=== PATIENT | male | born 1970 | race African-American/Black ===

== ENCOUNTER 2021-05-25 16:14 | Inpatient (IN) | payer OTHER ==
[2021-05-25] MEDS ORDERED: ONDANSETRON *ODT* 4 MG TABLET SL PRN (21:06)
[2021-05-25] MEDS ORDERED: BISMUTH SUBSALICYLATE 524 MG/30 ML PO PRN (21:06)
[2021-05-25] MEDS ORDERED: MAG HYDROX/AL HYDROX/SIMETH 30 ML UNIT-DOSE CUP PO PRN (21:06)
[2021-05-25] MEDS ORDERED: ACETAMINOPHEN 325 MG TABLET (FP) PO PRN ×2 (21:06)
[2021-05-25] MEDS ORDERED: MENTHOL/PHENOL 1 EACH UD MM PRN (21:06)
[2021-05-25] MEDS ORDERED: MAGNESIUM HYDROX 2400MG/30ML ORAL SUSPENSION 30 ML CUP PO PRN (21:06)
[2021-05-25] MEDS ORDERED: MAGNESIUM CITRATE 300 ML BOTTLE PO PRN (21:06)
[2021-05-26] MEDS ORDERED: chlordiazePOXIDE HCL 25 MG CAPSULE PO PRN (00:22)
[2021-05-26] MEDS ORDERED: chlordiazePOXIDE HCL 25 MG CAPSULE ONE (00:37)
[2021-05-26] MEDS: MELATONIN 5 MG TABLETS PO SCH ×2 (00:41→22:07)
[2021-05-26] MEDS: THIAMINE HCL 100 MG TABLET (FP) PO SCH ×2 (00:41→22:06)
[2021-05-26] MEDS: chlordiazePOXIDE HCL 25 MG CAPSULE PO SCH ×2 (05:58→10:17)
[2021-05-26] MEDS ORDERED: AMLODIPINE BESYLATE PO SCH (10:00)
[2021-05-26] MEDS: METHOCARBAMOL 500 MG TABLET PO PRN (10:17)
[2021-05-26] MEDS: PRENATAL VITAMINS W/ FOLIC ACID TABLET (FP) PO SCH (10:18)
[2021-05-26] MEDS: PATIENT'S OWN MEDICATION (NON-FORMULARY) (Levetiracetam [Levetiracetam] 1,000 MG Tablet) PO SCH ×2 (10:20→22:07)
[2021-05-26] MEDS: FAMOTIDINE 20 MG PO SCH ×2 (10:20→22:07)
[2021-05-26] MEDS: ATENOLOL PO SCH (10:21)
[2021-05-26 10:42] LABS: HEMATOCRIT 34.4 % (35.4-49); HEMOGLOBIN 11.3 GM/dL (11.7-16.9); MCH 30.8 pg (25.7-33.7); MCHC 32.8 g/dl (32.0-35.9); MEAN CELL VOLUME 93.9 fl (80-96); MEAN PLT VOLUME 9.4 fl (7.5-11.1); PLATELET COUNT 200 10^3/uL (134-434); RBC 3.67 M/mm3 (4.00-5.60); RDW 15.1 % (11.9-15.9); WHITE BLOOD COUNT 2.4 K/mm3 (4.0-10.0)
[2021-05-26 11:12] LABS: ALBUMIN 3.7 g/dl (3.4-5.0); CALCIUM 9.4 mg/dL (8.5-10.1)
[2021-05-26 11:13] LABS: BLOOD UREA NITROGEN 13.6 mg/dL (7-18)
[2021-05-26 11:16] LABS: CREATININE 0.8 mg/dL (0.55-1.3)
[2021-05-26 11:17] LABS: TOT PROT 7.4 g/dl (6.4-8.2)
[2021-05-26] MEDS ORDERED: PATIENT'S OWN MEDICATION (NON-FORMULARY) (Amlodipine Besylate [Amlodipine Besylate] 10 MG) PO SCH (15:22)
[2021-05-26] MEDS ORDERED: POTASSIUM CHLORIDE ORAL LIQUID 20 MEQ/15 ML PO ONE (15:29)
[2021-05-26] MEDS ORDERED: LORazepam 0.5 MG TABLET PO PRN (15:37)
[2021-05-26] MEDS: LORazepam 1 MG TABLET PO SCH ×2 (18:07→22:06)
[2021-05-27] MEDS: IBUPROFEN 400 MG TABLET (FP) PO PRN ×3 (03:10→22:21)
[2021-05-27] MEDS ORDERED: chlordiazePOXIDE HCL 25 MG CAPSULE PO SCH (05:00)
[2021-05-27] MEDS: METHOCARBAMOL 500 MG TABLET PO PRN (05:37)
[2021-05-27] MEDS: LORazepam 0.5 MG TABLET PO SCH ×3 (05:38→18:07)
[2021-05-27] MEDS: PRENATAL VITAMINS W/ FOLIC ACID TABLET (FP) PO SCH (10:18)
[2021-05-27] MEDS: ATENOLOL PO SCH (10:18)
[2021-05-27] MEDS: PATIENT'S OWN MEDICATION (NON-FORMULARY) (Levetiracetam [Levetiracetam] 1,000 MG Tablet) PO SCH ×2 (10:18→22:20)
[2021-05-27] MEDS: FAMOTIDINE 20 MG PO SCH ×2 (10:19→22:20)
[2021-05-27] MEDS: AMLODIPINE BESYLATE PO SCH (10:19)
[2021-05-27 12:11] LABS: BASO % 1.1 % (0-2.0); HEMATOCRIT 36.8 % (35.4-49); LYMPH % 25.9 % (8-40); MCH 30.7 pg (25.7-33.7); MCHC 32.6 g/dl (32.0-35.9); MEAN CELL VOLUME 94.3 fl (80-96); MEAN PLT VOLUME 9.9 fl (7.5-11.1); MONO % 16.2 % (3.8-10.2); NEUT % 55.8 % (42.8-82.8); PLATELET COUNT 185 10^3/uL (134-434); RDW 14.8 % (11.9-15.9); WHITE BLOOD COUNT 2.9 K/mm3 (4.0-10.0)
[2021-05-27] MEDS: LISINOPRIL 5 MG TABLET PO SCH (12:27)
[2021-05-27] MEDS: FOLIC ACID 1 MG TABLET (FP) PO SCH (22:19)
[2021-05-27] MEDS: GABAPENTIN 300 MG CAPSULE PO SCH (22:19)
[2021-05-27] MEDS: MELATONIN 5 MG TABLETS PO SCH (22:19)
[2021-05-27] MEDS: THIAMINE HCL 100 MG TABLET (FP) PO SCH (22:20)
[2021-05-28] MEDS ORDERED: chlordiazePOXIDE HCL 10 MG CAPSULE PO PRN
[2021-05-28] MEDS: LORazepam 0.5 MG TABLET PO SCH ×4 (01:00→22:06)
[2021-05-28] MEDS ORDERED: chlordiazePOXIDE HCL 10 MG CAPSULE PO SCH (05:00)
[2021-05-28] MEDS: GABAPENTIN 300 MG CAPSULE PO SCH ×3 (05:51→22:05)
[2021-05-28] MEDS: LISINOPRIL 5 MG TABLET PO SCH (10:18)
[2021-05-28] MEDS: ATENOLOL PO SCH (10:18)
[2021-05-28] MEDS: PATIENT'S OWN MEDICATION (NON-FORMULARY) (Levetiracetam [Levetiracetam] 1,000 MG Tablet) PO SCH ×2 (10:18→22:10)
[2021-05-28] MEDS: FAMOTIDINE 20 MG PO SCH ×2 (10:18→22:09)
[2021-05-28] MEDS: FOLIC ACID 1 MG TABLET (FP) PO SCH (10:19)
[2021-05-28] MEDS: PRENATAL VITAMINS W/ FOLIC ACID TABLET (FP) PO SCH (10:21)
[2021-05-28] MEDS: AMLODIPINE BESYLATE PO SCH (10:22)
[2021-05-28] MEDS: IBUPROFEN 400 MG TABLET (FP) PO PRN (10:25)
[2021-05-28] MEDS ORDERED: BENZTROPINE MESYLATE 0.5 MG TABLET (FP) PO SCH (14:00)
[2021-05-28] MEDS: BENZTROPINE MESYLATE 1 MG TABLET PO SCH ×2 (14:41→22:05)
[2021-05-28] MEDS: HALOPERIDOL 0.5 MG TABLET PO SCH ×2 (14:43→22:05)
[2021-05-28] MEDS: MELATONIN 5 MG TABLETS PO SCH (22:05)
[2021-05-28] MEDS: THIAMINE HCL 100 MG TABLET (FP) PO SCH (22:05)
[2021-05-29] MEDS ORDERED: chlordiazePOXIDE HCL 10 MG CAPSULE PO SCH (05:00)
[2021-05-29] MEDS: GABAPENTIN 300 MG CAPSULE PO SCH ×3 (06:14→22:13)
[2021-05-29] MEDS: LORazepam 0.5 MG TABLET PO SCH ×2 (06:14→17:59)
[2021-05-29] MEDS: AMLODIPINE BESYLATE PO SCH (10:46)
[2021-05-29] MEDS: ATENOLOL PO SCH (10:46)
[2021-05-29] MEDS: BENZTROPINE MESYLATE 1 MG TABLET PO SCH ×2 (10:46→22:12)
[2021-05-29] MEDS: FAMOTIDINE 20 MG PO SCH ×2 (10:46→22:16)
[2021-05-29] MEDS: HALOPERIDOL 0.5 MG TABLET PO SCH ×2 (10:47→22:17)
[2021-05-29] MEDS: PATIENT'S OWN MEDICATION (NON-FORMULARY) (Levetiracetam [Levetiracetam] 1,000 MG Tablet) PO SCH ×2 (10:47→22:17)
[2021-05-29] MEDS: LISINOPRIL 5 MG TABLET PO SCH (10:47)
[2021-05-29] MEDS: FOLIC ACID 1 MG TABLET (FP) PO SCH (10:47)
[2021-05-29] MEDS: PRENATAL VITAMINS W/ FOLIC ACID TABLET (FP) PO SCH (10:47)
[2021-05-29] MEDS: IBUPROFEN 400 MG TABLET (FP) PO PRN ×2 (18:00→22:19)
[2021-05-29] MEDS: MELATONIN 5 MG TABLETS PO SCH (22:13)
[2021-05-29] MEDS: THIAMINE HCL 100 MG TABLET (FP) PO SCH (22:13)
[2021-05-30] MEDS ORDERED: LORazepam 0.5 MG TABLET PO ONE (05:00)
[2021-05-30] MEDS ORDERED: chlordiazePOXIDE HCL 10 MG CAPSULE PO ONE (05:00)
[2021-05-30] MEDS: GABAPENTIN 300 MG CAPSULE PO SCH ×3 (05:53→21:56)
[2021-05-30] MEDS: PRENATAL VITAMINS W/ FOLIC ACID TABLET (FP) PO SCH (10:11)
[2021-05-30] MEDS: BENZTROPINE MESYLATE 1 MG TABLET PO SCH ×2 (10:11→21:56)
[2021-05-30] MEDS: LISINOPRIL 5 MG TABLET PO SCH (10:11)
[2021-05-30] MEDS: FOLIC ACID 1 MG TABLET (FP) PO SCH (10:12)
[2021-05-30] MEDS: HALOPERIDOL 0.5 MG TABLET PO SCH ×2 (10:12→21:55)
[2021-05-30] MEDS: ATENOLOL PO SCH (10:12)
[2021-05-30] MEDS: AMLODIPINE BESYLATE PO SCH (10:13)
[2021-05-30] MEDS: PATIENT'S OWN MEDICATION (NON-FORMULARY) (Levetiracetam [Levetiracetam] 1,000 MG Tablet) PO SCH ×2 (10:13→21:56)
[2021-05-30] MEDS: FAMOTIDINE 20 MG PO SCH ×2 (10:14→21:55)
[2021-05-30] MEDS: IBUPROFEN 400 MG TABLET (FP) PO PRN (17:47)
[2021-05-30 21:19] VITALS: BP 150/90; PULSE 61; TEMP 97.3
[2021-05-30] MEDS: THIAMINE HCL 100 MG TABLET (FP) PO SCH (21:55)
[2021-05-30] MEDS: MELATONIN 5 MG TABLETS PO SCH (21:56)
== END 2021-05-30 22:00 | disposition other institution (70) | DRG 775 ==
LOC: YASAS 16:14 → Y6N 23:15
PROVIDERS: ADMIT Allergy & Immunology; ATTEND Allergy & Immunology
PROC: HZ2ZZZZ Detoxification Services for Substance Abuse Treatment (ICD-10-PCS; principal; 2021-05-25)
DX: F10.230 Alcohol dependence with withdrawal, uncomplicated (principal); F10.282 Alcohol dependence with alcohol-induced sleep disorder; F10.24 Alcohol dependence with alcohol-induced mood disorder; F29 Unspecified psychosis not due to a substance or known physiological condition; G62.9 Polyneuropathy, unspecified; I10 Essential (primary) hypertension; K21.9 Gastro-esophageal reflux disease without esophagitis; D72.819 Decreased white blood cell count, unspecified; Z62.810 Personal history of physical and sexual abuse in childhood; Z91.410 Personal history of adult physical and sexual abuse; Z56.0 Unemployment, unspecified
CPT/HCPCS: 36415; 80053; 80177; 85025; 85027; 86780; 93005; 93010; C9803; Q0162; U0003; U0005

== ENCOUNTER 2021-05-30 22:10 | Inpatient (IN) | payer OTHER ==
[2021-05-30] MEDS ORDERED: MENTHOL/PHENOL 1 EACH UD MM PRN (22:35)
[2021-05-30] MEDS ORDERED: MAGNESIUM HYDROX 2400MG/30ML ORAL SUSPENSION 30 ML CUP PO PRN (22:35)
[2021-05-30] MEDS ORDERED: guaiFENesin 200 MG/10 ML 10 ML UNIT-DOSE CUPS PO PRN (22:35)
[2021-05-30] MEDS ORDERED: MAGNESIUM CITRATE 300 ML BOTTLE PO PRN (22:35)
[2021-05-30] MEDS ORDERED: P-EPHED 60MG/TRIPROLIDI 2.5MG TABLET PO PRN (22:35)
[2021-05-30] MEDS ORDERED: NICOTINE 10 MG CARTRIDGE (INHALER) IH PRN (22:35)
[2021-05-30] MEDS ORDERED: LOPERAMIDE HCL 2 MG CAPSULE PO PRN (22:35)
[2021-05-30] MEDS ORDERED: MAG HYDROX/AL HYDROX/SIMETH 30 ML UNIT-DOSE CUP PO PRN (22:35)
[2021-05-30] MEDS ORDERED: ACETAMINOPHEN 325 MG TABLET (FP) PO PRN (22:35)
[2021-05-30] MEDS: MELATONIN 5 MG TABLETS PO SCH (22:58)
[2021-05-31] MEDS: IBUPROFEN 400 MG TABLET (FP) PO PRN (06:32)
[2021-05-31] MEDS: FAMOTIDINE 20 MG TABLET PO SCH ×2 (09:47→21:13)
[2021-05-31] MEDS: levETIRAcetam 500 MG TABLET (FP) PO SCH ×2 (09:47→21:10)
[2021-05-31] MEDS: ATENOLOL 25 MG TABLET (FP) PO SCH (09:48)
[2021-05-31] MEDS: amLODIPine BESYLATE 5 MG TABLET (FP) PO SCH (09:48)
[2021-05-31] MEDS: NICOTINE 14 MG/24 HOURS TOPICAL PATCH TD SCH (09:49)
[2021-05-31] MEDS: FOLIC ACID 1 MG TABLET (FP) PO SCH (09:49)
[2021-05-31] MEDS: PRENATAL VITAMINS W/ FOLIC ACID TABLET (FP) PO SCH (09:50)
[2021-05-31] MEDS ORDERED: BENZTROPINE MESYLATE 0.5 MG TABLET (FP) PO SCH (10:00)
[2021-05-31] MEDS ORDERED: THIAMINE HCL 100 MG TABLET (FP) PO SCH (10:00)
[2021-05-31] MEDS ORDERED: BENZTROPINE MESYLATE 1 MG TABLET PO SCH (10:26)
[2021-05-31] MEDS: HALOPERIDOL 0.5 MG TABLET PO SCH ×2 (10:41→21:10)
[2021-05-31] MEDS: BENZTROPINE MESYLATE 1 MG TABLET PO SCH ×2 (10:41→21:11)
[2021-05-31] MEDS: GABAPENTIN 300 MG CAPSULE PO SCH ×2 (13:48→21:10)
[2021-05-31] MEDS: MELATONIN 5 MG TABLETS PO SCH (21:12)
[2021-05-31] MEDS: THIAMINE HCL 100 MG TABLET (FP) PO SCH (21:13)
[2021-06-01] MEDS: GABAPENTIN 300 MG CAPSULE PO SCH (06:28)
[2021-06-01] MEDS: IBUPROFEN 400 MG TABLET (FP) PO PRN (06:28)
[2021-06-01] MEDS: BENZTROPINE MESYLATE 1 MG TABLET PO SCH ×2 (09:08→21:23)
[2021-06-01] MEDS: amLODIPine BESYLATE 5 MG TABLET (FP) PO SCH (09:08)
[2021-06-01] MEDS: FAMOTIDINE 20 MG TABLET PO SCH ×2 (09:08→21:23)
[2021-06-01] MEDS: PRENATAL VITAMINS W/ FOLIC ACID TABLET (FP) PO SCH (09:09)
[2021-06-01] MEDS: FOLIC ACID 1 MG TABLET (FP) PO SCH (09:09)
[2021-06-01] MEDS: HALOPERIDOL 0.5 MG TABLET PO SCH ×2 (09:09→21:26)
[2021-06-01] MEDS: levETIRAcetam 500 MG TABLET (FP) PO SCH ×2 (09:10→21:23)
[2021-06-01] MEDS: NICOTINE 14 MG/24 HOURS TOPICAL PATCH TD SCH (09:11)
[2021-06-01] MEDS: ATENOLOL 25 MG TABLET (FP) PO SCH (09:11)
[2021-06-01] MEDS: GABAPENTIN 400 MG CAPSULE PO SCH ×2 (14:38→21:23)
[2021-06-01] MEDS: THIAMINE HCL 100 MG TABLET (FP) PO SCH (21:23)
[2021-06-01] MEDS: MELATONIN 5 MG TABLETS PO SCH (21:24)
[2021-06-02] MEDS: GABAPENTIN 400 MG CAPSULE PO SCH ×3 (06:11→21:35)
[2021-06-02] MEDS: IBUPROFEN 400 MG TABLET (FP) PO PRN ×2 (06:12→21:36)
[2021-06-02] MEDS: FAMOTIDINE 20 MG TABLET PO SCH ×2 (09:52→21:35)
[2021-06-02] MEDS: levETIRAcetam 500 MG TABLET (FP) PO SCH ×2 (09:52→21:35)
[2021-06-02] MEDS: amLODIPine BESYLATE 5 MG TABLET (FP) PO SCH (09:52)
[2021-06-02] MEDS: HALOPERIDOL 0.5 MG TABLET PO SCH (09:52)
[2021-06-02] MEDS: BENZTROPINE MESYLATE 1 MG TABLET PO SCH ×2 (09:52→21:35)
[2021-06-02] MEDS: FOLIC ACID 1 MG TABLET (FP) PO SCH (09:53)
[2021-06-02] MEDS: PRENATAL VITAMINS W/ FOLIC ACID TABLET (FP) PO SCH (09:53)
[2021-06-02] MEDS: NICOTINE 14 MG/24 HOURS TOPICAL PATCH TD SCH (09:53)
[2021-06-02] MEDS: ATENOLOL 25 MG TABLET (FP) PO SCH (10:47)
[2021-06-02] MEDS: THIAMINE HCL 100 MG TABLET (FP) PO SCH (21:35)
[2021-06-02] MEDS: MELATONIN 5 MG TABLETS PO SCH (21:38)
[2021-06-02] MEDS: HALOPERIDOL 1 MG TABLET PO SCH (21:39)
[2021-06-03] MEDS: GABAPENTIN 400 MG CAPSULE PO SCH ×3 (06:25→21:31)
[2021-06-03] MEDS: IBUPROFEN 400 MG TABLET (FP) PO PRN ×2 (06:25→21:34)
[2021-06-03] MEDS: amLODIPine BESYLATE 5 MG TABLET (FP) PO SCH (09:42)
[2021-06-03] MEDS: ATENOLOL 25 MG TABLET (FP) PO SCH (09:43)
[2021-06-03] MEDS: FOLIC ACID 1 MG TABLET (FP) PO SCH (09:43)
[2021-06-03] MEDS: FAMOTIDINE 20 MG TABLET PO SCH ×2 (09:43→21:32)
[2021-06-03] MEDS: BENZTROPINE MESYLATE 1 MG TABLET PO SCH ×2 (09:43→21:32)
[2021-06-03] MEDS: levETIRAcetam 500 MG TABLET (FP) PO SCH ×2 (09:43→21:32)
[2021-06-03] MEDS: PRENATAL VITAMINS W/ FOLIC ACID TABLET (FP) PO SCH (09:45)
[2021-06-03] MEDS: HALOPERIDOL 1 MG TABLET PO SCH ×2 (09:45→21:31)
[2021-06-03] MEDS: NICOTINE 14 MG/24 HOURS TOPICAL PATCH TD SCH (09:46)
[2021-06-03] MEDS ORDERED: COLLOIDAL OATMEAL 1 BAR EACH TP PRN (14:29)
[2021-06-03] MEDS: THIAMINE HCL 100 MG TABLET (FP) PO SCH (21:32)
[2021-06-03] MEDS: MELATONIN 5 MG TABLETS PO SCH (21:34)
[2021-06-03] MEDS: NYSTATIN POWDER 100,000 UNITS/GM - 15 GM TOPICAL POWDER TP SCH (21:55)
[2021-06-04] MEDS: IBUPROFEN 400 MG TABLET (FP) PO PRN ×2 (06:10→21:15)
[2021-06-04] MEDS: GABAPENTIN 400 MG CAPSULE PO SCH ×3 (06:10→21:11)
[2021-06-04] MEDS: amLODIPine BESYLATE 5 MG TABLET (FP) PO SCH (09:38)
[2021-06-04] MEDS: levETIRAcetam 500 MG TABLET (FP) PO SCH ×2 (09:38→21:11)
[2021-06-04] MEDS: BENZTROPINE MESYLATE 1 MG TABLET PO SCH ×2 (09:38→21:12)
[2021-06-04] MEDS: PRENATAL VITAMINS W/ FOLIC ACID TABLET (FP) PO SCH (09:39)
[2021-06-04] MEDS: FAMOTIDINE 20 MG TABLET PO SCH ×2 (09:39→21:12)
[2021-06-04] MEDS: NYSTATIN POWDER 100,000 UNITS/GM - 15 GM TOPICAL POWDER TP SCH ×2 (09:41→21:14)
[2021-06-04] MEDS: FOLIC ACID 1 MG TABLET (FP) PO SCH (09:41)
[2021-06-04] MEDS: HALOPERIDOL 1 MG TABLET PO SCH ×2 (09:41→21:14)
[2021-06-04] MEDS: NICOTINE 14 MG/24 HOURS TOPICAL PATCH TD SCH (09:42)
[2021-06-04] MEDS: ATENOLOL 25 MG TABLET (FP) PO SCH (09:42)
[2021-06-04] MEDS: THIAMINE HCL 100 MG TABLET (FP) PO SCH (21:12)
[2021-06-04] MEDS: MELATONIN 5 MG TABLETS PO SCH (21:14)
[2021-06-05] MEDS: GABAPENTIN 400 MG CAPSULE PO SCH ×3 (06:24→22:05)
[2021-06-05] MEDS: IBUPROFEN 400 MG TABLET (FP) PO PRN ×2 (06:25→22:04)
[2021-06-05] MEDS: FOLIC ACID 1 MG TABLET (FP) PO SCH (09:49)
[2021-06-05] MEDS: BENZTROPINE MESYLATE 1 MG TABLET PO SCH ×2 (09:50→22:07)
[2021-06-05] MEDS: levETIRAcetam 500 MG TABLET (FP) PO SCH ×2 (09:50→22:05)
[2021-06-05] MEDS: amLODIPine BESYLATE 5 MG TABLET (FP) PO SCH (09:50)
[2021-06-05] MEDS: FAMOTIDINE 20 MG TABLET PO SCH ×2 (09:50→21:56)
[2021-06-05] MEDS: NYSTATIN POWDER 100,000 UNITS/GM - 15 GM TOPICAL POWDER TP SCH ×2 (09:51→22:07)
[2021-06-05] MEDS: PRENATAL VITAMINS W/ FOLIC ACID TABLET (FP) PO SCH (09:51)
[2021-06-05] MEDS: HALOPERIDOL 1 MG TABLET PO SCH ×2 (09:51→22:07)
[2021-06-05] MEDS: NICOTINE 14 MG/24 HOURS TOPICAL PATCH TD SCH (09:51)
[2021-06-05] MEDS: ATENOLOL 25 MG TABLET (FP) PO SCH (09:52)
[2021-06-05] MEDS: MELATONIN 5 MG TABLETS PO SCH (21:57)
[2021-06-05] MEDS: THIAMINE HCL 100 MG TABLET (FP) PO SCH (22:01)
[2021-06-06] MEDS: GABAPENTIN 400 MG CAPSULE PO SCH ×3 (06:34→21:42)
[2021-06-06] MEDS: IBUPROFEN 400 MG TABLET (FP) PO PRN (06:34)
[2021-06-06] MEDS: levETIRAcetam 500 MG TABLET (FP) PO SCH ×2 (10:03→21:42)
[2021-06-06] MEDS: amLODIPine BESYLATE 5 MG TABLET (FP) PO SCH (10:03)
[2021-06-06] MEDS: BENZTROPINE MESYLATE 1 MG TABLET PO SCH ×2 (10:03→21:42)
[2021-06-06] MEDS: FOLIC ACID 1 MG TABLET (FP) PO SCH (10:03)
[2021-06-06] MEDS: PRENATAL VITAMINS W/ FOLIC ACID TABLET (FP) PO SCH (10:03)
[2021-06-06] MEDS: ATENOLOL 25 MG TABLET (FP) PO SCH (10:03)
[2021-06-06] MEDS: NYSTATIN POWDER 100,000 UNITS/GM - 15 GM TOPICAL POWDER TP SCH ×2 (10:04→21:59)
[2021-06-06] MEDS: NICOTINE 14 MG/24 HOURS TOPICAL PATCH TD SCH (10:04)
[2021-06-06] MEDS: FAMOTIDINE 20 MG TABLET PO SCH ×2 (10:04→21:42)
[2021-06-06] MEDS: HALOPERIDOL 1 MG TABLET PO SCH ×2 (10:05→21:43)
[2021-06-06] MEDS: THIAMINE HCL 100 MG TABLET (FP) PO SCH (21:42)
[2021-06-06] MEDS: MELATONIN 5 MG TABLETS PO SCH (21:42)
[2021-06-07] MEDS: GABAPENTIN 400 MG CAPSULE PO SCH ×3 (06:16→21:56)
[2021-06-07] MEDS: IBUPROFEN 400 MG TABLET (FP) PO PRN ×2 (06:16→22:00)
[2021-06-07] MEDS: ATENOLOL 25 MG TABLET (FP) PO SCH (09:43)
[2021-06-07] MEDS: FAMOTIDINE 20 MG TABLET PO SCH ×2 (09:44→21:58)
[2021-06-07] MEDS: FOLIC ACID 1 MG TABLET (FP) PO SCH (09:44)
[2021-06-07] MEDS: levETIRAcetam 500 MG TABLET (FP) PO SCH ×2 (09:44→21:56)
[2021-06-07] MEDS: BENZTROPINE MESYLATE 1 MG TABLET PO SCH ×2 (09:44→21:56)
[2021-06-07] MEDS: PRENATAL VITAMINS W/ FOLIC ACID TABLET (FP) PO SCH (09:44)
[2021-06-07] MEDS: amLODIPine BESYLATE 5 MG TABLET (FP) PO SCH (09:44)
[2021-06-07] MEDS: NICOTINE 14 MG/24 HOURS TOPICAL PATCH TD SCH (09:46)
[2021-06-07] MEDS: NYSTATIN POWDER 100,000 UNITS/GM - 15 GM TOPICAL POWDER TP SCH ×2 (09:46→21:58)
[2021-06-07] MEDS: HALOPERIDOL 1 MG TABLET PO SCH ×2 (09:46→21:57)
[2021-06-07] MEDS: THIAMINE HCL 100 MG TABLET (FP) PO SCH (21:56)
[2021-06-07] MEDS: MELATONIN 5 MG TABLETS PO SCH (21:57)
[2021-06-08] MEDS: GABAPENTIN 400 MG CAPSULE PO SCH ×3 (06:26→22:05)
[2021-06-08] MEDS: IBUPROFEN 400 MG TABLET (FP) PO PRN (06:28)
[2021-06-08] MEDS: ATENOLOL 25 MG TABLET (FP) PO SCH (10:17)
[2021-06-08] MEDS: FOLIC ACID 1 MG TABLET (FP) PO SCH (10:17)
[2021-06-08] MEDS: levETIRAcetam 500 MG TABLET (FP) PO SCH ×2 (10:18→22:08)
[2021-06-08] MEDS: HALOPERIDOL 1 MG TABLET PO SCH ×2 (10:18→22:09)
[2021-06-08] MEDS: amLODIPine BESYLATE 5 MG TABLET (FP) PO SCH (10:18)
[2021-06-08] MEDS: BENZTROPINE MESYLATE 1 MG TABLET PO SCH ×2 (10:18→22:09)
[2021-06-08] MEDS: PRENATAL VITAMINS W/ FOLIC ACID TABLET (FP) PO SCH (10:19)
[2021-06-08] MEDS: NYSTATIN POWDER 100,000 UNITS/GM - 15 GM TOPICAL POWDER TP SCH ×2 (10:19→22:35)
[2021-06-08] MEDS: FAMOTIDINE 20 MG TABLET PO SCH ×2 (10:20→22:02)
[2021-06-08] MEDS: NICOTINE 14 MG/24 HOURS TOPICAL PATCH TD SCH (10:20)
[2021-06-08] MEDS: THIAMINE HCL 100 MG TABLET (FP) PO SCH (22:02)
[2021-06-08] MEDS: MELATONIN 5 MG TABLETS PO SCH (22:09)
[2021-06-09] MEDS: GABAPENTIN 400 MG CAPSULE PO SCH ×3 (06:13→21:31)
[2021-06-09] MEDS: IBUPROFEN 400 MG TABLET (FP) PO PRN ×2 (06:14→21:35)
[2021-06-09] MEDS: FOLIC ACID 1 MG TABLET (FP) PO SCH (09:56)
[2021-06-09] MEDS: HALOPERIDOL 1 MG TABLET PO SCH ×2 (09:56→21:31)
[2021-06-09] MEDS: BENZTROPINE MESYLATE 1 MG TABLET PO SCH ×2 (09:57→21:31)
[2021-06-09] MEDS: FAMOTIDINE 20 MG TABLET PO SCH ×2 (09:57→21:31)
[2021-06-09] MEDS: levETIRAcetam 500 MG TABLET (FP) PO SCH ×2 (09:57→21:31)
[2021-06-09] MEDS: amLODIPine BESYLATE 5 MG TABLET (FP) PO SCH (09:57)
[2021-06-09] MEDS: ATENOLOL 25 MG TABLET (FP) PO SCH (09:57)
[2021-06-09] MEDS: PRENATAL VITAMINS W/ FOLIC ACID TABLET (FP) PO SCH (09:58)
[2021-06-09] MEDS: NICOTINE 14 MG/24 HOURS TOPICAL PATCH TD SCH (09:58)
[2021-06-09] MEDS: NYSTATIN POWDER 100,000 UNITS/GM - 15 GM TOPICAL POWDER TP SCH ×2 (09:58→21:32)
[2021-06-09] MEDS: MELATONIN 5 MG TABLETS PO SCH (21:31)
[2021-06-09] MEDS: THIAMINE HCL 100 MG TABLET (FP) PO SCH (21:31)
[2021-06-10] MEDS: IBUPROFEN 400 MG TABLET (FP) PO PRN (06:19)
[2021-06-10] MEDS: GABAPENTIN 400 MG CAPSULE PO SCH ×3 (06:19→21:17)
[2021-06-10] MEDS: BENZTROPINE MESYLATE 1 MG TABLET PO SCH ×2 (10:16→21:18)
[2021-06-10] MEDS: PRENATAL VITAMINS W/ FOLIC ACID TABLET (FP) PO SCH (10:16)
[2021-06-10] MEDS: FAMOTIDINE 20 MG TABLET PO SCH ×2 (10:16→21:18)
[2021-06-10] MEDS: ATENOLOL 25 MG TABLET (FP) PO SCH (10:17)
[2021-06-10] MEDS: levETIRAcetam 500 MG TABLET (FP) PO SCH ×2 (10:17→21:17)
[2021-06-10] MEDS: FOLIC ACID 1 MG TABLET (FP) PO SCH (10:17)
[2021-06-10] MEDS: amLODIPine BESYLATE 5 MG TABLET (FP) PO SCH (10:17)
[2021-06-10] MEDS: NYSTATIN POWDER 100,000 UNITS/GM - 15 GM TOPICAL POWDER TP SCH ×2 (10:18→21:19)
[2021-06-10] MEDS: HALOPERIDOL 1 MG TABLET PO SCH ×2 (10:18→21:44)
[2021-06-10] MEDS: NICOTINE 14 MG/24 HOURS TOPICAL PATCH TD SCH (10:18)
[2021-06-10] MEDS: MELATONIN 5 MG TABLETS PO SCH (21:19)
[2021-06-10] MEDS: THIAMINE HCL 100 MG TABLET (FP) PO SCH (21:19)
[2021-06-11] MEDS: IBUPROFEN 400 MG TABLET (FP) PO PRN ×2 (06:19→21:23)
[2021-06-11] MEDS: GABAPENTIN 400 MG CAPSULE PO SCH ×3 (06:19→21:20)
[2021-06-11] MEDS: BENZTROPINE MESYLATE 1 MG TABLET PO SCH ×2 (09:16→21:21)
[2021-06-11] MEDS: levETIRAcetam 500 MG TABLET (FP) PO SCH ×2 (09:16→21:20)
[2021-06-11] MEDS: amLODIPine BESYLATE 5 MG TABLET (FP) PO SCH (09:16)
[2021-06-11] MEDS: FOLIC ACID 1 MG TABLET (FP) PO SCH (09:16)
[2021-06-11] MEDS: FAMOTIDINE 20 MG TABLET PO SCH ×2 (09:16→21:20)
[2021-06-11] MEDS: NYSTATIN POWDER 100,000 UNITS/GM - 15 GM TOPICAL POWDER TP SCH ×2 (09:17→21:22)
[2021-06-11] MEDS: HALOPERIDOL 1 MG TABLET PO SCH ×2 (09:17→21:20)
[2021-06-11] MEDS: NICOTINE 14 MG/24 HOURS TOPICAL PATCH TD SCH (09:17)
[2021-06-11] MEDS: PRENATAL VITAMINS W/ FOLIC ACID TABLET (FP) PO SCH (09:17)
[2021-06-11] MEDS: ATENOLOL 25 MG TABLET (FP) PO SCH (09:17)
[2021-06-11] MEDS: THIAMINE HCL 100 MG TABLET (FP) PO SCH (21:21)
[2021-06-11] MEDS: MELATONIN 5 MG TABLETS PO SCH (21:21)
[2021-06-12] MEDS: IBUPROFEN 400 MG TABLET (FP) PO PRN (06:21)
[2021-06-12] MEDS: GABAPENTIN 400 MG CAPSULE PO SCH (06:22)
[2021-06-12 06:49] VITALS: TEMP 96.6
[2021-06-12 08:57] VITALS: BP 137/80; PULSE 85
[2021-06-12] MEDS: amLODIPine BESYLATE 5 MG TABLET (FP) PO SCH (09:05)
[2021-06-12] MEDS: BENZTROPINE MESYLATE 1 MG TABLET PO SCH (09:05)
[2021-06-12] MEDS: FAMOTIDINE 20 MG TABLET PO SCH (09:05)
[2021-06-12] MEDS: levETIRAcetam 500 MG TABLET (FP) PO SCH (09:05)
[2021-06-12] MEDS: ATENOLOL 25 MG TABLET (FP) PO SCH (09:06)
[2021-06-12] MEDS: FOLIC ACID 1 MG TABLET (FP) PO SCH (09:06)
[2021-06-12] MEDS: NICOTINE 14 MG/24 HOURS TOPICAL PATCH TD SCH (09:07)
[2021-06-12] MEDS: PRENATAL VITAMINS W/ FOLIC ACID TABLET (FP) PO SCH (09:07)
[2021-06-12] MEDS: HALOPERIDOL 1 MG TABLET PO SCH (09:07)
[2021-06-12] MEDS: NYSTATIN POWDER 100,000 UNITS/GM - 15 GM TOPICAL POWDER TP SCH (09:08)
== END 2021-06-12 09:52 | disposition home or self-care (01) | DRG 772 ==
LOC: YASAS 22:10 → Y3E 22:16
PROVIDERS: ADMIT Allergy & Immunology; ATTEND Allergy & Immunology
PROC: HZ42ZZZ Group Counseling for Substance Abuse Treatment, Cognitive-Behavioral (ICD-10-PCS; principal; 2021-05-30)
DX: F10.20 Alcohol dependence, uncomplicated (principal); F10.282 Alcohol dependence with alcohol-induced sleep disorder; F10.951 Alcohol use, unspecified with alcohol-induced psychotic disorder with hallucinations; F20.81 Schizophreniform disorder; F10.24 Alcohol dependence with alcohol-induced mood disorder; G62.9 Polyneuropathy, unspecified; G47.53 Recurrent isolated sleep paralysis; I10 Essential (primary) hypertension; K21.9 Gastro-esophageal reflux disease without esophagitis; Z62.810 Personal history of physical and sexual abuse in childhood; Z91.410 Personal history of adult physical and sexual abuse; Z86.69 Personal history of other diseases of the nervous system and sense organs; Z56.0 Unemployment, unspecified
CPT/HCPCS: 36415; 80177; 84132; C9803; U0003; U0005